=== PATIENT | female | born 2000 | race Hispanic/Latino ===

== ENCOUNTER 2025-04-05 09:11 | Emergency (ER) | payer OTHER, SELFPAY ==
[2025-04-05 09:41] LABS: Leukocyte Negative (Negative); Protein, Urine (Dipstick) > or equal to 300 mg/dL (Neg-Trace); Specific Gravity, Urine 1.025 (1.005-1.030)
[2025-04-05 09:45] LABS: Glucose, Urine (Dipstick) Unable to Interpret mg/dL (Negative)
[2025-04-05 09:46] LABS: Bacteria/HPF Rare-Few HPF (None Seen); CAUTI Indications for Culture Pregnancy; RBC/HPF Greater than 50 HPF (0-3)
[2025-04-05 09:47] LABS: Pregnancy Test - Urine (BHCG) POSITIVE (Negative); Pregu Control Background? CLEAR/WHITE (CLR/WHITE); Pregu Control Bar Appear? YES (CONTROL BAR); Urine Culture Reflex Yes Yes
== END 2025-04-05 10:23 | disposition home or self-care (01) ==
LOC: BURERS 09:11
DX: O99.511 Diseases of the respiratory system complicating pregnancy, first trimester (principal); J10.1 Influenza due to other identified influenza virus with other respiratory manifestations; O20.0 Threatened abortion; Z3A.01 Less than 8 weeks gestation of pregnancy
CPT/HCPCS: 36415; 81001; 81025; 84702; 87077; 87086; 87186; 87428; 99284